=== PATIENT | female | born 1945 | race Hispanic/Latino ===

== ENCOUNTER 2017-10-30 12:45 | Emergency (ER) | payer MEDICARE ==
[~2017-10-30 12:45] MED LIST: AMLO1CAP13 PO; METF500T6 PO; METO5 PO; PRAV10TA39 PO; VALS160T28 PO; ZOLP10TA6 PO
[2017-10-30 14:15] LABS: APPEARANCE,URINE Clear (CLEAR); BILIRUBIN,URINE Negative (NEGATIVE); COLOR,URINE Yellow (YELLOW); GLUCOSE, URINE (UA) Negative (NEGATIVE); KETONES,URINE 15 mg/dL (NEGATIVE); LEUKOCYTE ESTERASE ,URINE Moderate (NEGATIVE); NITRATE,URINE Negative (NEGATIVE); OCCULT BLOOD,URINE Nonhemolyzed Trace (NEGATIVE); PH,URINE 5.5 (5.0-8.0); PROTEIN,URINE Trace (NEGATIVE); UROBILINOGEN,URINE 0.2 mg/dL (0.2-1.0)
[2017-10-30 14:36] LABS: BACTERIA,URINE None Seen /HPF (None Seen); RBC,URINE None Seen /HPF (0-1); TRANSITIONAL EPI CELLS,URINE Few /LPF (None Seen)
[2017-10-30 14:44] LABS: BASOPHILS % (AUTO) 0.1 % (0.0-5.0); EOSINOPHILS % (AUTO) 0.1 % (0.0-8.0); HEMATOCRIT 34.4 % (36-48); LYMPHOCYTES % (AUTO) 9.2 % (21.0-51.0); MEAN CORPUSCULAR HEMOGLOBIN 22.5 pg (27.0-33.0); MEAN CORPUSCULAR HGB CONC 32.1 g/dL (32.0-36.0); MEAN CORPUSCULAR VOLUME 70.2 fL (79-99); MONOCYTES % (AUTO) 2.4 % (3.0-13.0); NEUTROPHILS % (AUTO) 88.2 % (40.0-77.0); PLATELET COUNT (AUTO) 268 K/uL (130-400); RED CELL DISTRIBUTION WIDTH 17.2 % (11.0-15.5); WHITE BLOOD COUNT (AUTO) 13.7 K/uL (4.8-10.8)
[2017-10-30 15:03] LABS: CREATININE 0.8 mg/dL (0.5-1.5); POTASSIUM 3.1 mmol/L (3.5-5.1)
[2017-10-30] MEDS ORDERED: IOPAMIDOL-370 75 ML VIAL IV ONE (15:14)
[2017-10-30] MEDS ORDERED: POTASSIUM BICARB/CIT AC 25 MEQ TABLET.EFF ONE (16:41)
[2017-10-30] MEDS ORDERED: ACETAMINOPHEN 325 MG TAB ONE (16:45)
== END 2017-10-30 16:54 | disposition home or self-care (01) ==
LOC: EDH 12:45
DX: N28.89 Other specified disorders of kidney and ureter (principal); N39.0 Urinary tract infection, site not specified; E11.9 Type 2 diabetes mellitus without complications
CPT/HCPCS: 36415; 74177; 76856; 80048; 81001; 85025; 99285; Q9967

== ENCOUNTER 2017-11-04 14:29 | Observation (INO) | payer MEDICARE ==
[~2017-11-04] VITALS: Ht 152.4 cm; Wt 61.7 kg
[2017-11-04] MEDS ORDERED: ONDANSETRON HCL 4 MG/2 ML VIAL ONE (15:21)
[2017-11-04] MEDS ORDERED: MORPHINE SULFATE 4 MG/1ML SYG ONE ×2 (15:21→20:35)
[2017-11-04 15:23] LABS: BASOPHILS % (AUTO) 0.9 % (0.0-5.0); EOSINOPHILS % (AUTO) 0.3 % (0.0-8.0); HEMATOCRIT 31.6 % (36-48); LYMPHOCYTES % (AUTO) 21.7 % (21.0-51.0); MEAN CORPUSCULAR HEMOGLOBIN 22.4 pg (27.0-33.0); MEAN CORPUSCULAR HGB CONC 31.7 g/dL (32.0-36.0); MEAN CORPUSCULAR VOLUME 70.7 fL (79-99); MONOCYTES % (AUTO) 4.4 % (3.0-13.0); NEUTROPHILS % (AUTO) 72.7 % (40.0-77.0); PLATELET COUNT (AUTO) 286 K/uL (130-400); RED BLOOD CELL COUNT(AUTO) 4.47 MIL/uL (4.00-5.50)
[2017-11-04 15:34] LABS: APPEARANCE,URINE Cloudy (CLEAR); BILIRUBIN,URINE Negative (NEGATIVE); COLOR,URINE Yellow (YELLOW); GLUCOSE, URINE (UA) 250 mg/dL (NEGATIVE); KETONES,URINE 15 mg/dL (NEGATIVE); LEUKOCYTE ESTERASE ,URINE Moderate (NEGATIVE); NITRATE,URINE Negative (NEGATIVE); OCCULT BLOOD,URINE Moderate (NEGATIVE); PROTEIN,URINE POS 2+ (NEGATIVE); UROBILINOGEN,URINE 0.2 mg/dL (0.2-1.0)
[2017-11-04 15:36] LABS: CREATININE 0.7 mg/dL (0.5-1.5); POTASSIUM 3.3 mmol/L (3.5-5.1)
[2017-11-04 15:40] LABS: ALBUMIN 3.5 g/dL (3.5-5.0); BILIRUBIN,TOTAL 0.4 mg/dL (0.2-1.0); TOTAL PROTEIN, SERUM 6.8 g/dL (6.0-8.3)
[2017-11-04] MEDS ORDERED: POTASSIUM BICARB/CIT AC 25 MEQ TABLET.EFF ONE (15:40)
[2017-11-04 16:31] LABS: BACTERIA,URINE Many /HPF (None Seen); MUCUS,URINE Rare LPF (None Seen); RBC,URINE None Seen /HPF (0-1); SQUAMOUS EPITHELIAL CELL,UR 0-2 /LPF (0-2); WBC,URINE 51-100 /HPF (0-1)
[2017-11-04 16:39] LABS: RETICULOCYTE % (AUTO) 1.72 % (0.42-2.23)
[2017-11-04 16:49] LABS: INR 0.96 (0.85-1.15); PARTIAL THROMBOPLASTIN TIME 27.1 SEC (26.3-35.5); PROTHROMBIN TIME 10.1 SEC (9.6-11.6)
[2017-11-04] MEDS ORDERED: CEFTRIAXONE SODIUM 1 GM ONE (17:13)
[2017-11-04] MEDS ORDERED: SODIUM CHLORIDE 0.9% 1000ML 1,000 ML IV ONE (20:33)
[2017-11-04] MEDS ORDERED: ZOLPIDEM TARTRATE 5 MG TAB ONE (23:02)
[2017-11-05] MEDS ORDERED: MORPHINE SULFATE 2 MG/ML 1ML SYG IV PRN (00:30)
[2017-11-05] MEDS ORDERED: ONDANSETRON HCL 4 MG/2 ML VIAL IV PRN (00:30)
[2017-11-05] MEDS: CEFTRIAXONE 1GM/D5W 50ML 50 ML IV SCH ×2 (00:30→23:54)
[2017-11-05] MEDS ORDERED: HYDRALAZINE HCL 20 MG/ML VIAL IV PRN (00:30)
[2017-11-05] MEDS ORDERED: ACETAMINOPHEN 325 MG TAB PO PRN (00:30)
[2017-11-05] MEDS ORDERED: HYDRALAZINE HCL 20 MG/ML VIAL ONE (02:52)
[2017-11-05] MEDS ORDERED: SODIUM CHLORIDE 0.9% 1000ML 1,000 ML IV ONE (06:27)
[2017-11-05 06:42] LABS: BASOPHILS % (AUTO) 0.8 % (0.0-5.0); EOSINOPHILS % (AUTO) 0.1 % (0.0-8.0); LYMPHOCYTES % (AUTO) 17.4 % (21.0-51.0); MEAN CORPUSCULAR HEMOGLOBIN 22.7 pg (27.0-33.0); MEAN CORPUSCULAR HGB CONC 31.7 g/dL (32.0-36.0); MEAN CORPUSCULAR VOLUME 71.8 fL (79-99); MONOCYTES % (AUTO) 5.4 % (3.0-13.0); NEUTROPHILS % (AUTO) 76.3 % (40.0-77.0); PLATELET COUNT (AUTO) 299 K/uL (130-400); RED BLOOD CELL COUNT(AUTO) 4.32 MIL/uL (4.00-5.50); RED CELL DISTRIBUTION WIDTH 17.5 % (11.0-15.5); WHITE BLOOD COUNT (AUTO) 15.8 K/uL (4.8-10.8)
[2017-11-05 06:56] LABS: CREATININE 0.7 mg/dL (0.5-1.5); POTASSIUM 3.1 mmol/L (3.5-5.1)
[2017-11-05] MEDS ORDERED: PANTOPRAZOLE SODIUM 40 MG TABLET.DR PO ONE (07:21)
[2017-11-05] MEDS ORDERED: MORPHINE SULFATE 2 MG/ML 1ML SYG ONE (07:36)
[2017-11-05] MEDS: PANTOPRAZOLE SODIUM 40 MG TABLET.DR PO SCH (09:00)
[2017-11-05] MEDS ORDERED: CEFTRIAXONE SODIUM 1 GM ONE (09:06)
[2017-11-05] MEDS: SODIUM CHLORIDE 0.9% 1000ML 1,000 ML IV SCH ×3 (10:26→22:55)
[2017-11-05 11:30] VITALS: BP 164/80
[2017-11-05] MEDS: INSULIN LISPRO 100 UNIT/ML 3ML SQ SCH ×4 (11:30→21:34)
[2017-11-05] MEDS ORDERED: MV C1CAP5 PO (12:26)
[2017-11-05 15:30] VITALS: BP 145/80
[2017-11-05 19:50] VITALS: BP 152/78
[2017-11-05] MEDS: MORPHINE SULFATE 4 MG/1ML SYG IV PRN (20:03)
[2017-11-05 23:10] VITALS: BP 153/72
[2017-11-06] MEDS: MORPHINE SULFATE 4 MG/1ML SYG IV PRN ×2 (01:29→10:58)
[2017-11-06 02:57] VITALS: BP 150/72
[2017-11-06 05:15] LABS: BASOPHILS % (AUTO) 0.3 % (0.0-5.0); EOSINOPHILS % (AUTO) 0.5 % (0.0-8.0); HEMATOCRIT 28.6 % (36-48); LYMPHOCYTES % (AUTO) 21.3 % (21.0-51.0); MEAN CORPUSCULAR HEMOGLOBIN 22.5 pg (27.0-33.0); MEAN CORPUSCULAR HGB CONC 31.7 g/dL (32.0-36.0); MEAN CORPUSCULAR VOLUME 71.1 fL (79-99); MONOCYTES % (AUTO) 7.1 % (3.0-13.0); NEUTROPHILS % (AUTO) 70.8 % (40.0-77.0); PLATELET COUNT (AUTO) 260 K/uL (130-400); RED BLOOD CELL COUNT(AUTO) 4.03 MIL/uL (4.00-5.50); RED CELL DISTRIBUTION WIDTH 17.4 % (11.0-15.5); WHITE BLOOD COUNT (AUTO) 12.3 K/uL (4.8-10.8)
[2017-11-06 05:28] LABS: CREATININE 0.6 mg/dL (0.5-1.5)
[2017-11-06 05:29] LABS: POTASSIUM 2.9 mmol/L (3.5-5.1)
[2017-11-06] MEDS: INSULIN LISPRO 100 UNIT/ML 3ML SQ SCH ×4 (07:30→21:28)
[2017-11-06 07:37] VITALS: BP 151/71
[2017-11-06] MEDS ORDERED: ZOLPIDEM TARTRATE 5 MG TAB PO PRN ×2 (08:15→08:19)
[2017-11-06] MEDS: PANTOPRAZOLE SODIUM 40 MG TABLET.DR PO SCH (09:30)
[2017-11-06 11:32] VITALS: BP 152/68
[2017-11-06] MEDS: SODIUM CHLORIDE 0.9% 1000ML 1,000 ML IV SCH (14:40)
[2017-11-06 15:42] VITALS: BP 144/72
[2017-11-06] MEDS ORDERED: FENTANYL 50 MCG/HR PATCH TD SCH (16:30)
[2017-11-06] MEDS ORDERED: POTASSIUM CHLORIDE 20MEQ/100ML 100 ML IV PRN (17:15)
[2017-11-06] MEDS ORDERED: METOCLOPRAMIDE 5 MG TABLET PO PRN (17:15)
[2017-11-06] MEDS ORDERED: POTASSIUM CHLORIDE 10% ELIXIR 20 MEQ/15 ML UDCUP PO PRN (17:15)
[2017-11-06] MEDS ORDERED: LIDOCAINE HCL-MPF 1% 2ML VIAL IVP PRN (17:15)
[2017-11-06] MEDS: METFORMIN HCL 500 MG TABLET PO SCH (17:37)
[2017-11-06] MEDS: POTASSIUM CHLORIDE 20 MEQ ERTAB PO PRN ×3 (17:37→23:39)
[2017-11-06 18:50] VITALS: BP 153/67
[2017-11-06] MEDS ORDERED: ATORVASTATIN CALCIUM 10 MG TABLET PO SCH (21:00)
[2017-11-06 23:30] VITALS: BP 147/62
[2017-11-07] MEDS: CEFTRIAXONE 1GM/D5W 50ML 50 ML IV SCH (00:06)
[2017-11-07] MEDS: SODIUM CHLORIDE 0.9% 1000ML 1,000 ML IV SCH (00:07)
[2017-11-07] MEDS: POTASSIUM CHLORIDE 20 MEQ ERTAB PO PRN (01:05)
[2017-11-07 06:14] LABS: CREATININE 0.6 mg/dL (0.5-1.5); POTASSIUM 3.9 mmol/L (3.5-5.1)
[2017-11-07 07:51] VITALS: BP 149/70
[2017-11-07] MEDS ORDERED: FE FUMARATE/FA/MV, MIN COMB#15 1 TAB PO SCH (09:00)
[2017-11-07] MEDS ORDERED: LOSARTAN 100 MG TABLET PO SCH (09:00)
[2017-11-07] MEDS ORDERED: AMLODIPINE-BENAZEPRIL 5-10 MG PO SCH (09:00)
[2017-11-07] MEDS ORDERED: NON-FORMULARY MEDICATION 1 EACH (Amlodipine Besylate/Benazepril (Amlodipine-Benazepril 10- PO SCH (09:00)
[2017-11-07] MEDS: METFORMIN HCL 500 MG TABLET PO SCH ×2 (09:03→11:58)
[2017-11-07] MEDS: PANTOPRAZOLE SODIUM 40 MG TABLET.DR PO SCH (09:06)
[2017-11-07 11:42] VITALS: BP 131/67
[2017-11-07] MEDS ORDERED: INSULIN LISPRO 100 UNIT/ML 3ML SQ ONE (12:01)
[2017-11-07] MEDS: INSULIN LISPRO 100 UNIT/ML 3ML SQ SCH (12:03)
[2017-11-07 15:58] VITALS: BP 147/72
== END 2017-11-07 16:40 | disposition home or self-care (01) ==
LOC: EDH 14:29 → INTOOBSV 19:11 → EDHIP 19:11 → EEVIPCON 19:11 → WSH 11-05 11:30
PROVIDERS: ADMIT Family Medicine; ATTEND Family Medicine
DX: R10.2 Pelvic and perineal pain (principal); R10.84 Generalized abdominal pain; N88.8 Other specified noninflammatory disorders of cervix uteri; N28.89 Other specified disorders of kidney and ureter; N39.0 Urinary tract infection, site not specified; I10 Essential (primary) hypertension; E11.9 Type 2 diabetes mellitus without complications; E87.6 Hypokalemia; Z83.3 Family history of diabetes mellitus; Z90.49 Acquired absence of other specified parts of digestive tract
CPT/HCPCS: 36415 ×4; 71250; 78306; 80048 ×3; 80053; 81001; 82150; 82948 ×7; 83540; 83690; 83735; 85025 ×3; 85045; 85610; 85730; 87088; 96361 ×3; 96365; 96367; 96372 ×3; 96375 ×2; 96376 ×2; 99285; A4218; A9503; G0378 ×69; J0360; J0696 ×5; J1815; J2270 ×5; J2405; J3480; J7030 ×3

== ENCOUNTER 2017-11-20 19:29 | Inpatient (IN) | payer MEDICARE ==
[~2017-11-20] VITALS: Ht 154.9 cm; Wt 61.3 kg
[~2017-11-20 19:29] MED LIST changes: +MV C1CAP5 PO
[2017-11-20] MEDS ORDERED: ONDANSETRON HCL 4 MG/2 ML VIAL ONE (20:03)
[2017-11-20] MEDS ORDERED: MORPHINE SULFATE 2 MG/ML 1ML SYG ONE ×2 (20:04→21:31)
[2017-11-20 20:22] LABS: APPEARANCE,URINE Clear (CLEAR); BILIRUBIN,URINE Negative (NEGATIVE); COLOR,URINE Yellow (YELLOW); GLUCOSE, URINE (UA) Negative (NEGATIVE); KETONES,URINE Negative (NEGATIVE); LEUKOCYTE ESTERASE ,URINE Moderate (NEGATIVE); NITRATE,URINE Negative (NEGATIVE); OCCULT BLOOD,URINE Small (NEGATIVE); PROTEIN,URINE Negative (NEGATIVE); UROBILINOGEN,URINE 0.2 mg/dL (0.2-1.0)
[2017-11-20 20:23] LABS: BASOPHILS % (AUTO) 0.3 % (0.0-5.0); EOSINOPHILS % (AUTO) 0.2 % (0.0-8.0); HEMATOCRIT 34.8 % (36-48); LYMPHOCYTES % (AUTO) 20.4 % (21.0-51.0); MEAN CORPUSCULAR HEMOGLOBIN 23.1 pg (27.0-33.0); MEAN CORPUSCULAR HGB CONC 32.4 g/dL (32.0-36.0); MEAN CORPUSCULAR VOLUME 71.3 fL (79-99); MONOCYTES % (AUTO) 3.5 % (3.0-13.0); NEUTROPHILS % (AUTO) 75.6 % (40.0-77.0); PLATELET COUNT (AUTO) 326 K/uL (130-400); RED BLOOD CELL COUNT(AUTO) 4.88 MIL/uL (4.00-5.50); RED CELL DISTRIBUTION WIDTH 17.6 % (11.0-15.5); WHITE BLOOD COUNT (AUTO) 14.8 K/uL (4.8-10.8)
[2017-11-20 20:30] LABS: BACTERIA,URINE Rare /HPF (None Seen)
[2017-11-20 20:32] LABS: SQUAMOUS EPITHELIAL CELL,UR Rare /LPF (0-2)
[2017-11-20 20:41] LABS: CREATININE 0.7 mg/dL (0.5-1.5); POTASSIUM 3.1 mmol/L (3.5-5.1)
[2017-11-20 20:46] LABS: ALBUMIN 3.5 g/dL (3.5-5.0); BILIRUBIN,TOTAL 0.3 mg/dL (0.2-1.0); TOTAL PROTEIN, SERUM 7.2 g/dL (6.0-8.3)
[2017-11-20] MEDS ORDERED: HYDRALAZINE HCL 20 MG/ML VIAL ONE (23:51)
[2017-11-21] MEDS ORDERED: ZOLPIDEM TARTRATE 5 MG TAB ONE (02:03)
[2017-11-21] MEDS ORDERED: MORPHINE SULFATE 2 MG/ML 1ML SYG ONE (02:04)
[2017-11-21] MEDS ORDERED: CEFTRIAXONE SODIUM 1 GM ONE (02:55)
[2017-11-21 03:05] VITALS: BP 179/71
[2017-11-21] MEDS ORDERED: METF500T6 PO (03:47)
[2017-11-21] MEDS ORDERED: VALS160T28 PO (03:47)
[2017-11-21] MEDS ORDERED: ZOLP10TA6 PO (03:47)
[2017-11-21] MEDS ORDERED: MV C1CAP5 PO (03:47)
[2017-11-21] MEDS ORDERED: AMLO1CAP13 PO (03:47)
[2017-11-21] MEDS ORDERED: PRAV10TA39 PO (03:47)
[2017-11-21] MEDS ORDERED: LIDOCAINE HCL-MPF 1% 2ML VIAL IJ PRN (05:00)
[2017-11-21] MEDS ORDERED: CLONIDINE HCL 0.1 MG TABLET PO PRN (05:00)
[2017-11-21] MEDS ORDERED: LACTULOSE 20 GM/30 ML UDCUP PO PRN (05:00)
[2017-11-21] MEDS ORDERED: POTASSIUM CHLORIDE 20MEQ/100ML 100 ML IV PRN (05:00)
[2017-11-21] MEDS ORDERED: POTASSIUM CHLORIDE 10% ELIXIR 20 MEQ/15 ML UDCUP PO PRN (05:00)
[2017-11-21] MEDS ORDERED: DEXTROSE 50%-WATER 50 ML DISP.SYRIN IV PRN (05:00)
[2017-11-21] MEDS ORDERED: NITROGLYCERIN 0.4 MG SL TAB SL PRN (05:00)
[2017-11-21] MEDS ORDERED: ONDANSETRON HCL 4 MG/2 ML VIAL IVP PRN (05:00)
[2017-11-21] MEDS ORDERED: ZOLPIDEM TARTRATE 5 MG TAB PO PRN (05:00)
[2017-11-21] MEDS ORDERED: GLUCAGON 1MG KIT 1 MG ML IM PRN (05:00)
[2017-11-21] MEDS ORDERED: ACETAMINOPHEN 325 MG TAB PO PRN (05:00)
[2017-11-21 05:26] LABS: HEMATOCRIT 31.6 % (36-48); MEAN CORPUSCULAR HEMOGLOBIN 22.5 pg (27.0-33.0); MEAN CORPUSCULAR HGB CONC 31.7 g/dL (32.0-36.0); PLATELET COUNT (AUTO) 333 K/uL (130-400); RED BLOOD CELL COUNT(AUTO) 4.45 MIL/uL (4.00-5.50); RED CELL DISTRIBUTION WIDTH 17.8 % (11.0-15.5); WHITE BLOOD COUNT (AUTO) 16.6 K/uL (4.8-10.8)
[2017-11-21 05:35] LABS: CREATININE 0.6 mg/dL (0.5-1.5)
[2017-11-21] MEDS: SODIUM CHLORIDE 0.9% 1000ML 1,000 ML IV SCH (06:22)
[2017-11-21] MEDS: MORPHINE SULFATE 2 MG/ML 1ML SYG IVP PRN (06:26)
[2017-11-21] MEDS: INSULIN R PO SS1 SQ SCH ×5 (07:30→21:00)
[2017-11-21 08:00] VITALS: BP 139/68
[2017-11-21] MEDS: FAMOTIDINE 20MG TAB 20 MG TAB PO SCH ×2 (09:59→21:14)
[2017-11-21] MEDS ORDERED: MORPHINE SULFATE 4 MG/1ML SYG IVP PRN (10:30)
[2017-11-21 12:00] VITALS: BP 154/66
[2017-11-21] MEDS: CEFTRIAXONE SODIUM 1 GM IVP SCH (12:00)
[2017-11-21] MEDS: KETOROLAC TROMETHAMINE 15MG/ML IV PRN ×2 (12:21→21:13)
[2017-11-21] MEDS: INSULIN HUMULIN R 100 UNIT/ML 3ML SQ SCH ×3 (12:22→20:54)
[2017-11-21] MEDS: METFORMIN HCL 500 MG TABLET PO SCH ×2 (14:00→21:14)
[2017-11-21 16:00] VITALS: BP 176/76
[2017-11-21] MEDS: POTASSIUM CHLORIDE 20 MEQ ERTAB PO PRN ×3 (17:42→21:18)
[2017-11-21 19:00] VITALS: BP 163/85
[2017-11-21] MEDS: ATORVASTATIN CALCIUM 10 MG TABLET PO SCH (21:14)
[2017-11-21] MEDS: ZOLPIDEM TARTRATE 5 MG TAB PO PRN (21:18)
[2017-11-21 23:55] VITALS: BP 150/84
[2017-11-22] MEDS: POTASSIUM CHLORIDE 20 MEQ ERTAB PO PRN (02:53)
[2017-11-22] MEDS: KETOROLAC TROMETHAMINE 15MG/ML IV PRN ×2 (02:53→14:06)
[2017-11-22] MEDS ORDERED: CEFTRIAXONE 1GM/D5W 50ML 50 ML IV SCH (03:00)
[2017-11-22] MEDS: SODIUM CHLORIDE 0.9% 1000ML 1,000 ML IV SCH ×2 (03:49→13:00)
[2017-11-22 04:00] VITALS: BP 160/63
[2017-11-22 05:04] LABS: HEMATOCRIT 28.4 % (36-48); MEAN CORPUSCULAR HEMOGLOBIN 22.8 pg (27.0-33.0); MEAN CORPUSCULAR HGB CONC 32.1 g/dL (32.0-36.0); NUCLEATED RED BLOOD CELLS 0.1 % (0.0-0.19); PLATELET COUNT (AUTO) 287 K/uL (130-400); RED CELL DISTRIBUTION WIDTH 18.3 % (11.0-15.5); WHITE BLOOD COUNT (AUTO) 10.6 K/uL (4.8-10.8)
[2017-11-22 05:10] LABS: CREATININE 0.7 mg/dL (0.5-1.5); POTASSIUM 4.5 mmol/L (3.5-5.1)
[2017-11-22] MEDS: INSULIN HUMULIN R 100 UNIT/ML 3ML SQ SCH ×4 (06:15→21:00)
[2017-11-22 07:30] VITALS: BP 159/83
[2017-11-22] MEDS ORDERED: ENOXAPARIN SODIUM 40 MG/0.4 ML SYRINGE SQ SCH (09:00)
[2017-11-22 09:05] LABS: RETICULOCYTE % (AUTO) 1.37 % (0.42-2.23)
[2017-11-22] MEDS: LOSARTAN 100 MG TABLET PO SCH (09:15)
[2017-11-22] MEDS: FAMOTIDINE 20MG TAB 20 MG TAB PO SCH ×2 (09:15→21:29)
[2017-11-22] MEDS: METFORMIN HCL 500 MG TABLET PO SCH ×3 (09:15→21:29)
[2017-11-22] MEDS: FE FUMARATE/FA/MV, MIN COMB#15 1 TAB PO SCH (09:15)
[2017-11-22] MEDS: AMLODIPINE-BENAZEPRIL 5-10 MG PO SCH (09:16)
[2017-11-22 09:33] LABS: % IRON SATURATION 5.1 % (22-44)
[2017-11-22] MEDS: IRON SUCROSE COMPLEX 100 MG in SODIUM CHLORIDE 0.9% 50 ML IV SCH (10:25)
[2017-11-22 11:25] VITALS: BP 151/77
[2017-11-22 15:31] VITALS: BP 177/80
[2017-11-22] MEDS: MORPHINE SULFATE 2 MG/ML 1ML SYG IVP PRN ×2 (16:25→23:32)
[2017-11-22] MEDS: IBUPROFEN 400 MG TABLET PO PRN (18:58)
[2017-11-22 20:15] VITALS: BP 148/69
[2017-11-22] MEDS: ATORVASTATIN CALCIUM 10 MG TABLET PO SCH (21:29)
[2017-11-22] MEDS: ZOLPIDEM TARTRATE 5 MG TAB PO PRN (21:44)
[2017-11-22 23:49] VITALS: BP 139/59
[2017-11-23] MEDS: IBUPROFEN 400 MG TABLET PO PRN (00:40)
[2017-11-23] MEDS: MORPHINE SULFATE 2 MG/ML 1ML SYG IVP PRN ×3 (02:23→14:56)
[2017-11-23] MEDS: CEFTRIAXONE SODIUM 1 GM IVP SCH (02:26)
[2017-11-23 02:42] VITALS: BP 152/78
[2017-11-23 06:34] LABS: HEMATOCRIT 28.3 % (36-48); MEAN CORPUSCULAR HEMOGLOBIN 23.4 pg (27.0-33.0); MEAN CORPUSCULAR HGB CONC 32.6 g/dL (32.0-36.0); MEAN CORPUSCULAR VOLUME 71.8 fL (79-99); NUCLEATED RED BLOOD CELLS 0.1 % (0.0-0.19); PLATELET COUNT (AUTO) 267 K/uL (130-400); RED BLOOD CELL COUNT(AUTO) 3.95 MIL/uL (4.00-5.50); WHITE BLOOD COUNT (AUTO) 11.7 K/uL (4.8-10.8)
[2017-11-23 06:45] LABS: CREATININE 0.6 mg/dL (0.5-1.5); POTASSIUM 3.6 mmol/L (3.5-5.1)
[2017-11-23] MEDS: INSULIN HUMULIN R 100 UNIT/ML 3ML SQ SCH ×3 (07:10→21:00)
[2017-11-23 07:46] VITALS: BP 147/70
[2017-11-23] MEDS: LOSARTAN 100 MG TABLET PO SCH (09:28)
[2017-11-23] MEDS: METFORMIN HCL 500 MG TABLET PO SCH ×3 (09:28→21:17)
[2017-11-23] MEDS: FAMOTIDINE 20MG TAB 20 MG TAB PO SCH ×2 (09:28→21:18)
[2017-11-23] MEDS: FE FUMARATE/FA/MV, MIN COMB#15 1 TAB PO SCH (09:28)
[2017-11-23] MEDS: AMLODIPINE-BENAZEPRIL 5-10 MG PO SCH (09:28)
[2017-11-23] MEDS: POTASSIUM CHLORIDE 20 MEQ ERTAB PO PRN ×2 (10:36→18:19)
[2017-11-23] MEDS: IRON SUCROSE COMPLEX 100 MG in SODIUM CHLORIDE 0.9% 50 ML IV SCH (11:37)
[2017-11-23 11:57] VITALS: BP 159/82
[2017-11-23] MEDS: KETOROLAC TROMETHAMINE 15MG/ML IV PRN (12:35)
[2017-11-23] MEDS ORDERED: KETOROLAC TROMETHAMINE 15MG/ML IV PRN (12:45)
[2017-11-23] MEDS: ACETAMINOPHEN 325 MG TAB PO PRN (15:50)
[2017-11-23 16:03] VITALS: BP 156/78
[2017-11-23 19:26] VITALS: BP 147/88
[2017-11-23] MEDS: ZOLPIDEM TARTRATE 5 MG TAB PO PRN (21:17)
[2017-11-23] MEDS: ATORVASTATIN CALCIUM 10 MG TABLET PO SCH (21:18)
[2017-11-23 23:05] VITALS: BP 145/75
[2017-11-24] MEDS: MORPHINE SULFATE 2 MG/ML 1ML SYG IVP PRN ×2 (01:41→17:04)
[2017-11-24] MEDS: CEFTRIAXONE SODIUM 1 GM IVP SCH ×2 (02:39→12:00)
[2017-11-24] MEDS: ACETAMINOPHEN 325 MG TAB PO PRN (02:39)
[2017-11-24 03:36] VITALS: BP 146/63
[2017-11-24] MEDS: INSULIN HUMULIN R 100 UNIT/ML 3ML SQ SCH ×3 (07:20→21:00)
[2017-11-24 07:34] LABS: INR 1.41 (0.85-1.15); PARTIAL THROMBOPLASTIN TIME 31.2 SEC (26.3-35.5); PROTHROMBIN TIME 14.7 SEC (9.6-11.6)
[2017-11-24 07:35] LABS: ALBUMIN 3.2 g/dL (3.5-5.0); BILIRUBIN,TOTAL 0.3 mg/dL (0.2-1.0); CREATININE 0.8 mg/dL (0.5-1.5); POTASSIUM 3.7 mmol/L (3.5-5.1); TOTAL PROTEIN, SERUM 6.5 g/dL (6.0-8.3)
[2017-11-24 07:45] VITALS: BP 149/71
[2017-11-24] MEDS: FAMOTIDINE 20MG TAB 20 MG TAB PO SCH ×2 (09:37→21:40)
[2017-11-24] MEDS: METFORMIN HCL 500 MG TABLET PO SCH ×3 (09:37→21:40)
[2017-11-24] MEDS: LOSARTAN 100 MG TABLET PO SCH (09:37)
[2017-11-24] MEDS: AMLODIPINE-BENAZEPRIL 5-10 MG PO SCH (09:38)
[2017-11-24] MEDS: IRON SUCROSE COMPLEX 100 MG in SODIUM CHLORIDE 0.9% 50 ML IV SCH (09:38)
[2017-11-24] MEDS: POTASSIUM CHLORIDE 20 MEQ ERTAB PO PRN ×2 (09:38→15:09)
[2017-11-24] MEDS: FE FUMARATE/FA/MV, MIN COMB#15 1 TAB PO SCH (09:41)
[2017-11-24 11:56] VITALS: BP 151/79
[2017-11-24] MEDS: KETOROLAC TROMETHAMINE 15MG/ML IV PRN (12:07)
[2017-11-24] MEDS: TRAMADOL HCL 50 MG TABLET PO PRN ×2 (15:38→23:37)
[2017-11-24 15:44] VITALS: BP 148/72
[2017-11-24 19:43] VITALS: BP 140/57
[2017-11-24] MEDS: ATORVASTATIN CALCIUM 10 MG TABLET PO SCH (21:40)
[2017-11-24] MEDS: ZOLPIDEM TARTRATE 5 MG TAB PO PRN (21:40)
[2017-11-24 23:11] VITALS: BP 142/69
[2017-11-25] MEDS: ACETAMINOPHEN 325 MG TAB PO PRN ×2 (01:10→12:16)
[2017-11-25] MEDS: CEFTRIAXONE SODIUM 1 GM IVP SCH (02:38)
[2017-11-25 03:27] VITALS: BP 133/56
[2017-11-25] MEDS: INSULIN HUMULIN R 100 UNIT/ML 3ML SQ SCH (07:30)
[2017-11-25 07:52] VITALS: BP 144/71
[2017-11-25] MEDS: IRON SUCROSE COMPLEX 100 MG in SODIUM CHLORIDE 0.9% 50 ML IV SCH (09:00)
[2017-11-25] MEDS ORDERED: ENOXAPARIN SODIUM 40 MG/0.4 ML SYRINGE SQ SCH (09:00)
[2017-11-25] MEDS: FAMOTIDINE 20MG TAB 20 MG TAB PO SCH (09:13)
[2017-11-25] MEDS: METFORMIN HCL 500 MG TABLET PO SCH ×2 (09:14→13:38)
[2017-11-25] MEDS: FE FUMARATE/FA/MV, MIN COMB#15 1 TAB PO SCH (09:14)
[2017-11-25] MEDS: AMLODIPINE-BENAZEPRIL 5-10 MG PO SCH (09:14)
[2017-11-25] MEDS: LOSARTAN 100 MG TABLET PO SCH (09:14)
[2017-11-25 11:57] VITALS: BP 129/58
[2017-11-25] MEDS ORDERED: CEPH500B PO (13:00)
[2017-11-25] MEDS: TRAMADOL HCL 50 MG TABLET PO PRN (13:39)
== END 2017-11-25 15:35 | disposition home or self-care (01) | DRG 687 ==
LOC: EDH 19:29 → EDHIP 23:19 → OBSVTOIN 23:19 → 3CH 11-21 01:40 → WSH 11-22 11:22
PROVIDERS: ADMIT Internal Medicine; ATTEND Internal Medicine
PROC: 0TB13ZX Excision of Left Kidney, Percutaneous Approach, Diagnostic (ICD-10-PCS; principal; 2017-11-25)
DX: C64.2 Malignant neoplasm of left kidney, except renal pelvis (principal); N39.0 Urinary tract infection, site not specified; E11.65 Type 2 diabetes mellitus with hyperglycemia; C53.9 Malignant neoplasm of cervix uteri, unspecified; E86.0 Dehydration; D64.9 Anemia, unspecified; G47.00 Insomnia, unspecified; I10 Essential (primary) hypertension; N28.89 Other specified disorders of kidney and ureter; Z79.899 Other long term (current) drug therapy; Z87.891 Personal history of nicotine dependence; Z90.49 Acquired absence of other specified parts of digestive tract
CPT/HCPCS: 36415; 80048; 80053; 81001; 82607; 82728; 82746; 82948; 84132; 85025; 85027; 85610; 85730; 87088; A4218; J0360; J0696; J1650; J1756; J1815; J1885; J2405; J3480; J3490; J7030

== ENCOUNTER 2017-11-29 07:19 | Day surgery (SDC) | payer MEDICARE ==
[~2017-11-29] VITALS: Ht 154.9 cm; Wt 60.1 kg
[~2017-11-29 07:19] MED LIST changes: +CEPH500B PO; -METO5 PO
[2017-11-29 08:38] LABS: INR 1.02 (0.85-1.15); PARTIAL THROMBOPLASTIN TIME 29.2 SEC (26.3-35.5); PROTHROMBIN TIME 10.7 SEC (9.6-11.6)
[2017-11-29] MEDS ORDERED: FENTANYL CITRATE PF 50 MCG/1 ML 2ML VIAL ONE (12:24)
[2017-11-29] MEDS ORDERED: MIDAZOLAM HCL 1 MG/ML 2ML VIAL ONE (12:24)
[2017-11-29] MEDS ORDERED: SODIUM CHLORIDE 0.9% 1000ML 1,000 ML IV ONE (14:29)
== END 2017-11-29 15:05 | disposition home or self-care (01) ==
LOC: DAH 07:19 → EDSTATUS 08:00 → DAH 15:05
PROVIDERS: ATTEND Urology
DX: C64.2 Malignant neoplasm of left kidney, except renal pelvis (principal); I10 Essential (primary) hypertension; E11.9 Type 2 diabetes mellitus without complications; Z90.49 Acquired absence of other specified parts of digestive tract; Z98.890 Other specified postprocedural states; Z79.899 Other long term (current) drug therapy; Z87.891 Personal history of nicotine dependence
CPT/HCPCS: 50200; 36415; 76942; 82948 ×2; 85610; 85730; 88305; C2615; J2250; J3010; J7030

== ENCOUNTER 2018-08-04 20:16 | Inpatient (IN) | payer MEDICARE ==
[~2018-08-04] VITALS: Ht 154.9 cm; Wt 61.7 kg
[~2018-08-04 20:16] MED LIST changes: +METF-444 PO; -METF500T6 PO; -VALS160T28 PO; +VALS160T29 PO
[2018-08-04] MEDS ORDERED: ONDANSETRON HCL 4 MG/2 ML VIAL ONE (21:03)
[2018-08-04 21:09] LABS: BASOPHILS % (AUTO) 0.1 % (0.0-5.0); EOSINOPHILS % (AUTO) 0.1 % (0.0-8.0); HEMATOCRIT 29.6 % (36-48); LYMPHOCYTES % (AUTO) 12.9 % (21.0-51.0); MEAN CORPUSCULAR HEMOGLOBIN 23.3 pg (27.0-33.0); MEAN CORPUSCULAR HGB CONC 32.6 g/dL (32.0-36.0); MEAN CORPUSCULAR VOLUME 71.4 fL (79-99); MONOCYTES % (AUTO) 5.4 % (3.0-13.0); NEUTROPHILS % (AUTO) 81.5 % (40.0-77.0); NUCLEATED RED BLOOD CELLS 0.1 % (0.0-0.19); PLATELET COUNT (AUTO) 276 K/uL (130-400); RED BLOOD CELL COUNT(AUTO) 4.14 MIL/uL (4.00-5.50); RED CELL DISTRIBUTION WIDTH 18.6 % (11.0-15.5); WHITE BLOOD COUNT (AUTO) 9.6 K/uL (4.8-10.8)
[2018-08-04 21:28] LABS: ALBUMIN 3.6 g/dL (3.5-5.0); BILIRUBIN,TOTAL 0.5 mg/dL (0.2-1.0); CREATININE 0.9 mg/dL (0.5-1.5); POTASSIUM 3.2 mmol/L (3.5-5.1); TOTAL PROTEIN, SERUM 6.9 g/dL (6.0-8.3)
[2018-08-04 21:30] LABS: APPEARANCE,URINE Clear (CLEAR); BILIRUBIN,URINE Negative (NEGATIVE); COLOR,URINE Yellow (YELLOW); GLUCOSE, URINE (UA) Negative (NEGATIVE); KETONES,URINE 15 mg/dL (NEGATIVE); LEUKOCYTE ESTERASE ,URINE Trace (NEGATIVE); NITRATE,URINE Negative (NEGATIVE); OCCULT BLOOD,URINE Negative (NEGATIVE); PH,URINE 5.5 (5.0-8.0); PROTEIN,URINE Negative (NEGATIVE)
[2018-08-04 21:36] LABS: BACTERIA,URINE Rare /HPF (None Seen); RBC,URINE 0-1 /HPF (0-1); SQUAMOUS EPITHELIAL CELL,UR Few /HPF (0-2); TRANSITIONAL EPI CELLS,URINE Few /HPF (None Seen); WBC,URINE 0-1 /HPF (0-1)
[2018-08-04] MEDS ORDERED: SODIUM CHLORIDE 0.9% 1000ML 1,000 ML IV ONE (22:18)
[2018-08-04] MEDS ORDERED: METOCLOPRAMIDE 10 MG/2 ML VIAL ONE (22:22)
[2018-08-04] MEDS: SODIUM CHLORIDE 0.9% 1000ML 1,000 ML IV SCH (23:45)
[2018-08-04] MEDS ORDERED: METOCLOPRAMIDE 10 MG/2 ML VIAL IVP PRN (23:45)
[2018-08-04] MEDS ORDERED: ONDANSETRON HCL MDV 20ML 2 MG/ML VIAL IVP PRN (23:45)
[2018-08-04 23:48] VITALS: BP 127/77
[2018-08-05 03:15] VITALS: BP 150/70
[2018-08-05 05:24] LABS: HEMATOCRIT 27.7 % (36-48); MEAN CORPUSCULAR HEMOGLOBIN 24.1 pg (27.0-33.0); MEAN CORPUSCULAR HGB CONC 33.5 g/dL (32.0-36.0); MEAN CORPUSCULAR VOLUME 71.9 fL (79-99); PLATELET COUNT (AUTO) 286 K/uL (130-400); RED BLOOD CELL COUNT(AUTO) 3.85 MIL/uL (4.00-5.50); RED CELL DISTRIBUTION WIDTH 18.4 % (11.0-15.5); WHITE BLOOD COUNT (AUTO) 9.1 K/uL (4.8-10.8)
[2018-08-05 05:42] LABS: POTASSIUM 2.7 mmol/L (3.5-5.1)
[2018-08-05] MEDS: SODIUM CHLORIDE 0.9% 1000ML 1,000 ML IV SCH ×3 (06:09→23:55)
[2018-08-05 07:59] VITALS: BP 166/95
[2018-08-05] MEDS ORDERED: POTASSIUM CHLORIDE 10% ELIXIR 20 MEQ/15 ML UDCUP PO PRN (08:15)
[2018-08-05] MEDS ORDERED: LIDOCAINE HCL-MPF 1% 2ML VIAL IVP PRN (08:15)
[2018-08-05] MEDS: DIPHENOXYLATE HCL/ATROPINE 2.5/0.025 MG TAB PO SCH ×2 (08:52→21:40)
[2018-08-05] MEDS: POTASSIUM CHLORIDE 20 MEQ ERTAB PO PRN ×4 (08:53→17:48)
[2018-08-05] MEDS: POTASSIUM CHLORIDE 20MEQ/100ML 100 ML IV PRN ×2 (08:54→13:53)
[2018-08-05] MEDS ORDERED: ACETAMINOPHEN EXTRA STRENGTH 500 MG TABLET PO PRN (09:15)
[2018-08-05 11:40] VITALS: BP 155/68
[2018-08-05] MEDS ORDERED: LEVOFLOXACIN 500 MG/D5W 100 ML 100 ML IV SCH (16:30)
[2018-08-05 16:46] VITALS: BP 166/83
[2018-08-05 19:00] VITALS: BP 174/80
[2018-08-05] MEDS: METRONIDAZOLE 500MG/100ML BAG 100 ML IV SCH (21:40)
[2018-08-05] MEDS: FAMOTIDINE/PF 20 MG/2 ML VIAL IV SCH (21:40)
[2018-08-05 23:00] VITALS: BP 128/54
[2018-08-05] MEDS ORDERED: MAGNESIUM 2GM PREMIX 50ML 50 ML IV PRN (23:45)
[2018-08-05] MEDS ORDERED: MAGNESIUM 2GM PREMIX 50ML 50 ML IV ONE (23:48)
[2018-08-06 03:25] VITALS: BP 150/63
[2018-08-06 04:54] LABS: HEMATOCRIT 28.3 % (36-48); MEAN CORPUSCULAR HEMOGLOBIN 24.1 pg (27.0-33.0); MEAN CORPUSCULAR HGB CONC 32.9 g/dL (32.0-36.0); MEAN CORPUSCULAR VOLUME 73.3 fL (79-99); PLATELET COUNT (AUTO) 249 K/uL (130-400); RED BLOOD CELL COUNT(AUTO) 3.86 MIL/uL (4.00-5.50); RED CELL DISTRIBUTION WIDTH 18.5 % (11.0-15.5); WHITE BLOOD COUNT (AUTO) 6.9 K/uL (4.8-10.8)
[2018-08-06 05:06] LABS: CREATININE 0.8 mg/dL (0.5-1.5); MAGNESIUM 1.6 mg/dL (1.80-2.40); POTASSIUM 4.5 mmol/L (3.5-5.1)
[2018-08-06] MEDS: METRONIDAZOLE 500MG/100ML BAG 100 ML IV SCH (05:36)
[2018-08-06 08:00] VITALS: BP 172/88
[2018-08-06] MEDS: DIPHENOXYLATE HCL/ATROPINE 2.5/0.025 MG TAB PO SCH (10:05)
[2018-08-06] MEDS: FAMOTIDINE/PF 20 MG/2 ML VIAL IV SCH (10:05)
[2018-08-06] MEDS: SODIUM CHLORIDE 0.9% 1000ML 1,000 ML IV SCH (10:06)
[2018-08-06 12:00] VITALS: BP 176/87
== END 2018-08-06 15:20 | disposition home or self-care (01) | DRG 641 ==
LOC: EDH 20:16 → EDHIP 22:14 → 3BH 23:48
PROVIDERS: ADMIT Internal Medicine; ATTEND Internal Medicine
DX: E86.0 Dehydration (principal); E87.1 Hypo-osmolality and hyponatremia; D64.9 Anemia, unspecified; E11.22 Type 2 diabetes mellitus with diabetic chronic kidney disease; E78.5 Hyperlipidemia, unspecified; E83.42 Hypomagnesemia; E87.6 Hypokalemia; I12.9 Hypertensive chronic kidney disease with stage 1 through stage 4 chronic kidney disease, or unspecified chronic kidney disease; K52.9 Noninfective gastroenteritis and colitis, unspecified; N18.9 Chronic kidney disease, unspecified; Z80.42 Family history of malignant neoplasm of prostate; Z82.49 Family history of ischemic heart disease and other diseases of the circulatory system; Z83.3 Family history of diabetes mellitus; Z85.42 Personal history of malignant neoplasm of other parts of uterus; Z85.528 Personal history of other malignant neoplasm of kidney; Z90.49 Acquired absence of other specified parts of digestive tract; Z90.5 Acquired absence of kidney; Z90.710 Acquired absence of both cervix and uterus; Z92.21 Personal history of antineoplastic chemotherapy
CPT/HCPCS: 36415; 80048; 80053; 81001; 82150; 82948; 83690; 83735; 84132; 85025; 85027; 93005; J1956; J2405; J2765; J3475; J3480; J3490; J7030

== ENCOUNTER 2019-09-21 10:23 | Emergency (ER) | payer MEDICARE ==
[~2019-09-21 10:23] MED LIST changes: +AMLO-74 PO; -AMLO1CAP13 PO; -CEPH500B PO; +GABA-529 PO; +HYDR12.54 PO; +METO5TAB87 PO
[2019-09-21] MEDS ORDERED: ONDANSETRON HCL 4 MG/2 ML VIAL ONE (11:07)
[2019-09-21] MEDS ORDERED: MORPHINE SULFATE 4 MG/1ML SYG ONE (11:08)
[2019-09-21 11:42] LABS: BASOPHILS % (AUTO) 0.7 % (0.0-5.0); EOSINOPHILS % (AUTO) 0.4 % (0.0-8.0); HEMATOCRIT 40.6 % (36-48); LYMPHOCYTES % (AUTO) 13.2 % (21.0-51.0); MEAN CORPUSCULAR HEMOGLOBIN 29.3 pg (27.0-33.0); MEAN CORPUSCULAR HGB CONC 33.8 g/dL (32.0-36.0); MEAN CORPUSCULAR VOLUME 86.5 fL (79-99); NEUTROPHILS % (AUTO) 81.7 % (40.0-77.0); PLATELET COUNT (AUTO) 179 K/uL (130-400); RED BLOOD CELL COUNT(AUTO) 4.69 MIL/uL (4.00-5.50); RED CELL DISTRIBUTION WIDTH 15.7 % (11.0-15.5); WHITE BLOOD COUNT (AUTO) 7.9 K/uL (4.8-10.8)
[2019-09-21 11:47] LABS: APPEARANCE,URINE Clear (CLEAR); BILIRUBIN,URINE Negative (NEGATIVE); COLOR,URINE Yellow (YELLOW); GLUCOSE, URINE (UA) Negative (NEGATIVE); KETONES,URINE Negative (NEGATIVE); LEUKOCYTE ESTERASE ,URINE Small (NEGATIVE); NITRATE,URINE Negative (NEGATIVE); OCCULT BLOOD,URINE Negative (NEGATIVE); PH,URINE 8.5 (5.0-8.0); PROTEIN,URINE Negative (NEGATIVE)
[2019-09-21 11:53] LABS: CREATININE 0.8 mg/dL (0.5-1.5); POTASSIUM 3.9 mmol/L (3.5-5.1)
[2019-09-21 11:58] LABS: ALBUMIN 3.8 g/dL (3.5-5.0); BILIRUBIN,DIRECT 0.1 mg/dL (0.0-0.3); BILIRUBIN,TOTAL 0.6 mg/dL (0.2-1.0); TOTAL PROTEIN, SERUM 7.4 g/dL (6.0-8.3)
[2019-09-21 12:07] LABS: BACTERIA,URINE Rare /HPF (None Seen); RBC,URINE 0-1 /HPF (0-1); SQUAMOUS EPITHELIAL CELL,UR Rare /HPF (0-2)
== END 2019-09-21 14:12 | disposition home or self-care (01) ==
LOC: EDH 10:23
DX: K43.9 Ventral hernia without obstruction or gangrene (principal); R10.9 Unspecified abdominal pain; C79.9 Secondary malignant neoplasm of unspecified site; I10 Essential (primary) hypertension; E11.9 Type 2 diabetes mellitus without complications; G47.00 Insomnia, unspecified; Z90.5 Acquired absence of kidney; Z90.710 Acquired absence of both cervix and uterus
CPT/HCPCS: 36415; 74176; 80048; 80076; 81001; 82550; 83690; 84484; 85025; 93005; 96374; 96375; 99285; J2270; J2405

== ENCOUNTER 2019-11-21 07:50 | Emergency (ER) | payer MEDICARE ==
[2019-11-21] MEDS ORDERED: MORPHINE SULFATE 4 MG/1ML SYG ONE (08:23)
[2019-11-21 08:24] LABS: BASOPHILS % (AUTO) 0.3 % (0.0-5.0); HEMATOCRIT 37.6 % (36-48); LYMPHOCYTES % (AUTO) 15.5 % (21.0-51.0); MEAN CORPUSCULAR HEMOGLOBIN 28.1 pg (27.0-33.0); MEAN CORPUSCULAR VOLUME 82.5 fL (79-99); MONOCYTES % (AUTO) 6.6 % (3.0-13.0); NEUTROPHILS % (AUTO) 75.5 % (40.0-77.0); PLATELET COUNT (AUTO) 183 K/uL (130-400); RED BLOOD CELL COUNT(AUTO) 4.56 MIL/uL (4.00-5.50); RED CELL DISTRIBUTION WIDTH 12.4 % (11.0-15.5); WHITE BLOOD COUNT (AUTO) 7.8 K/uL (4.8-10.8)
[2019-11-21] MEDS ORDERED: ONDANSETRON HCL 4 MG/2 ML VIAL ONE (08:24)
[2019-11-21] MEDS ORDERED: SODIUM CHLORIDE 0.9% 1000ML 1,000 ML IV ONE (08:25)
[2019-11-21 08:42] LABS: CREATININE 0.9 mg/dL (0.5-1.5); POTASSIUM 3.9 mmol/L (3.5-5.1)
[2019-11-21 09:28] LABS: APPEARANCE,URINE Clear (CLEAR); BILIRUBIN,URINE Negative (NEGATIVE); COLOR,URINE Yellow (YELLOW); GLUCOSE, URINE (UA) Negative (NEGATIVE); KETONES,URINE Negative (NEGATIVE); LEUKOCYTE ESTERASE ,URINE Trace (NEGATIVE); NITRATE,URINE Negative (NEGATIVE); OCCULT BLOOD,URINE Negative (NEGATIVE); PH,URINE 6.5 (5.0-8.0); PROTEIN,URINE Negative (NEGATIVE)
[2019-11-21 09:47] LABS: BACTERIA,URINE Few /HPF (None Seen); RBC,URINE 0-1 /HPF (0-1); WBC,URINE 0-1 /HPF (0-1)
== END 2019-11-21 09:58 | disposition home or self-care (01) ==
LOC: EDH 07:50
DX: K43.9 Ventral hernia without obstruction or gangrene (principal); R91.1 Solitary pulmonary nodule; K86.89 Other specified diseases of pancreas; E11.9 Type 2 diabetes mellitus without complications; I10 Essential (primary) hypertension; Z90.710 Acquired absence of both cervix and uterus
CPT/HCPCS: 36415; 74176; 80048; 81001; 83605; 85025; 96374; 96375; 99285; J2270; J2405; J7030

== ENCOUNTER 2020-01-07 16:28 | Emergency (ER) | payer MEDICARE ==
[~2020-01-07 16:28] MED LIST changes: -AMLO-74 PO; +AMLO10TA7 PO; +ASPI-555 PO; +FERR325T22 PO; -GABA-529 PO; -HYDR12.54 PO; +HYDR25TA PO; -METO5TAB87 PO; -MV C1CAP5 PO; +PREG50CA63 PO; -VALS160T29 PO; +VALS320T16 PO; +ZOLP10TA2 PO; -ZOLP10TA6 PO
[2020-01-27] MEDS ORDERED: LEVO500T2 PO (13:24)
== END 2020-01-07 18:31 | disposition home or self-care (01) ==
LOC: EDH 16:28
DX: Z48.815 Encounter for surgical aftercare following surgery on the digestive system (principal); Z48.03 Encounter for change or removal of drains; I10 Essential (primary) hypertension; E11.9 Type 2 diabetes mellitus without complications; Z90.49 Acquired absence of other specified parts of digestive tract; Z90.710 Acquired absence of both cervix and uterus

== ENCOUNTER 2020-02-09 16:31 | Emergency (ER) | payer MEDICARE ==
[~2020-02-09 16:31] MED LIST changes: +LEVO500T2 PO
== END 2020-02-09 18:08 | disposition home or self-care (01) ==
LOC: EDH 16:31
DX: S31.109A Unspecified open wound of abdominal wall, unspecified quadrant without penetration into peritoneal cavity, initial encounter (principal); I10 Essential (primary) hypertension; E11.9 Type 2 diabetes mellitus without complications; Z98.890 Other specified postprocedural states; Z90.710 Acquired absence of both cervix and uterus; X58.XXXA Exposure to other specified factors, initial encounter; Y93.89 Activity, other specified; Y92.89 Other specified places as the place of occurrence of the external cause; Y99.8 Other external cause status
CPT/HCPCS: 99282

== ENCOUNTER 2020-03-14 12:03 | Emergency (ER) | payer MEDICARE ==
[2020-03-14 12:49] LABS: BASOPHILS % (AUTO) 0.3 % (0.0-5.0); EOSINOPHILS % (AUTO) 0.3 % (0.0-8.0); HEMATOCRIT 33.8 % (36-48); MEAN CORPUSCULAR HEMOGLOBIN 27.3 pg (27.0-33.0); MEAN CORPUSCULAR VOLUME 80.3 fL (79-99); MONOCYTES % (AUTO) 4.1 % (3.0-13.0); NEUTROPHILS % (AUTO) 81.2 % (40.0-77.0); PLATELET COUNT (AUTO) 381 K/uL (130-400); RED BLOOD CELL COUNT(AUTO) 4.21 MIL/uL (4.00-5.50); RED CELL DISTRIBUTION WIDTH 14.1 % (11.0-15.5); WHITE BLOOD COUNT (AUTO) 11.6 K/uL (4.8-10.8)
[2020-03-14 13:14] LABS: ALBUMIN 2.8 g/dL (3.5-5.0); BILIRUBIN,TOTAL 0.3 mg/dL (0.2-1.0); TOTAL PROTEIN, SERUM 6.5 g/dL (6.0-8.3)
[2020-03-14 13:18] LABS: POTASSIUM 2.7 mmol/L (3.5-5.1)
[2020-03-14 13:20] LABS: INR 0.99 (0.85-1.15); PARTIAL THROMBOPLASTIN TIME 27.6 SEC (26.3-35.5); PROTHROMBIN TIME 10.7 SEC (9.6-11.6)
[2020-03-14] MEDS ORDERED: POTASSIUM CHLORIDE 20MEQ/100ML 0 ML IV ONE (13:28)
[2020-03-14] MEDS ORDERED: LIDOCAINE HCL-MPF 1% 2ML VIAL ONE (13:28)
[2020-03-14] MEDS ORDERED: POTASSIUM CHLORIDE 10MEQ/100ML 100 ML IV ONE (13:31)
[2020-03-14 13:35] LABS: CREATININE 0.8 mg/dL (0.5-1.5)
[2020-03-14 13:49] LABS: APPEARANCE,URINE Clear (CLEAR); BILIRUBIN,URINE Negative (NEGATIVE); COLOR,URINE Yellow (YELLOW); GLUCOSE, URINE (UA) Negative (NEGATIVE); KETONES,URINE Negative (NEGATIVE); LEUKOCYTE ESTERASE ,URINE Trace (NEGATIVE); NITRATE,URINE Negative (NEGATIVE); OCCULT BLOOD,URINE Negative (NEGATIVE); PH,URINE 6.5 (5.0-8.0); PROTEIN,URINE Negative (NEGATIVE); UROBILINOGEN,URINE 0.2 mg/dL (0.2-1.0)
[2020-03-14 14:11] LABS: BACTERIA,URINE Rare /HPF (None Seen); RBC,URINE 0-1 /HPF (0-1); SQUAMOUS EPITHELIAL CELL,UR Rare /HPF (0-2); WBC,URINE 0-1 /HPF (0-1)
[2020-03-14] MEDS ORDERED: POTASSIUM BICARB/CIT AC 25 MEQ TABLET.EFF ONE (15:15)
== END 2020-03-14 16:49 | disposition home or self-care (01) ==
LOC: EDH 12:03
DX: E87.6 Hypokalemia (principal); K52.9 Noninfective gastroenteritis and colitis, unspecified; S31.109A Unspecified open wound of abdominal wall, unspecified quadrant without penetration into peritoneal cavity, initial encounter; I10 Essential (primary) hypertension; E11.9 Type 2 diabetes mellitus without complications; Z90.710 Acquired absence of both cervix and uterus; Z98.890 Other specified postprocedural states; X58.XXXA Exposure to other specified factors, initial encounter; Y93.89 Activity, other specified; Y92.89 Other specified places as the place of occurrence of the external cause; Y99.8 Other external cause status
CPT/HCPCS: 36415; 74176; 76856; 80053; 81001; 82150; 82550; 83690; 84484; 85025; 85610; 85730; 93005; 96365; 96366; J3480; J3490

== ENCOUNTER 2020-07-18 10:06 | Emergency (ER) | payer MEDICARE ==
[~2020-07-18 10:06] MED LIST changes: -ASPI-555 PO; +ASPI-556 PO
[2020-07-18 10:59] LABS: BASOPHILS % (AUTO) 0.2 % (0.0-5.0); EOSINOPHILS % (AUTO) 0.7 % (0.0-8.0); HEMATOCRIT 31.1 % (36-48); LYMPHOCYTES % (AUTO) 8.5 % (21.0-51.0); MEAN CORPUSCULAR HEMOGLOBIN 26.4 pg (27.0-33.0); MEAN CORPUSCULAR HGB CONC 32.8 g/dL (32.0-36.0); MEAN CORPUSCULAR VOLUME 80.6 fL (79-99); MONOCYTES % (AUTO) 5.8 % (3.0-13.0); NEUTROPHILS % (AUTO) 84.2 % (40.0-77.0); PLATELET COUNT (AUTO) 279 K/uL (130-400); RED BLOOD CELL COUNT(AUTO) 3.86 MIL/uL (4.00-5.50); RED CELL DISTRIBUTION WIDTH 14.6 % (11.0-15.5); WHITE BLOOD COUNT (AUTO) 9.6 K/uL (4.8-10.8)
[2020-07-18 11:10] LABS: CARBON DIOXIDE 25 mmol/L (21-32); CHLORIDE 96 mmol/L (101-111); CREATININE 0.8 mg/dL (0.5-1.5); GLOMERULAR FILTR. RATE CALC 75 mL/min (>60); GLUCOSE,RANDOM 128 mg/dL (70-105); POTASSIUM 3.2 mmol/L (3.5-5.1); SODIUM SERUM 132 mmol/L (136-145); UREA NITROGEN, BLOOD 12 mg/dL (7-18)
[2020-07-18] MEDS ORDERED: FENTANYL CITRATE PF 50 MCG/1 ML 2ML VIAL ONE (11:12)
[2020-07-18 11:14] LABS: ALANINE AMINOTRANSFERASE 10 U/L (12-78); ALBUMIN 2.8 g/dL (3.5-5.0); ASPARTATE AMINOTRANSFERASE 19 U/L (10-37); BILIRUBIN,TOTAL 0.3 mg/dL (0.2-1.0); TOTAL PROTEIN, SERUM 6.7 g/dL (6.0-8.3)
[2020-07-18 11:15] LABS: LIPASE < 50 U/L (114-286)
[2020-07-18 11:47] LABS: APPEARANCE,URINE Clear (CLEAR); BILIRUBIN,URINE Negative (NEGATIVE); COLOR,URINE Yellow (YELLOW); GLUCOSE, URINE (UA) Negative (NEGATIVE); KETONES,URINE Negative (NEGATIVE); LEUKOCYTE ESTERASE ,URINE Negative (NEGATIVE); NITRATE,URINE Negative (NEGATIVE); OCCULT BLOOD,URINE Negative (NEGATIVE); PROTEIN,URINE Negative (NEGATIVE); UROBILINOGEN,URINE 0.2 mg/dL (0.2-1.0)
[2020-07-18] MEDS ORDERED: POTASSIUM CHLORIDE 20 MEQ ERTAB PO ONE (12:33)
== END 2020-07-18 13:32 | disposition home or self-care (01) ==
LOC: EDH 10:06
DX: G89.28 Other chronic postprocedural pain (principal); R11.0 Nausea; R10.9 Unspecified abdominal pain; E11.9 Type 2 diabetes mellitus without complications; I10 Essential (primary) hypertension; Z90.49 Acquired absence of other specified parts of digestive tract; Z90.710 Acquired absence of both cervix and uterus
CPT/HCPCS: 36415; 80053; 81003; 83690; 85025; 96374; 99283; J3010

== ENCOUNTER → 2020-07-31 | Outpatient (CLI) | payer MEDICARE ==
[~2020-07-31] MED LIST changes: +CEFU500T67 PO; +CHOL50002 PO
== END | disposition home or self-care (01) ==
LOC: WHH 13:30
PROVIDERS: ATTEND Specialist
DX: T81.32XA Disruption of internal operation (surgical) wound, not elsewhere classified, initial encounter (principal); E11.622 Type 2 diabetes mellitus with other skin ulcer; L98.492 Non-pressure chronic ulcer of skin of other sites with fat layer exposed; I10 Essential (primary) hypertension; E78.5 Hyperlipidemia, unspecified; D64.9 Anemia, unspecified; Z90.49 Acquired absence of other specified parts of digestive tract; Z90.710 Acquired absence of both cervix and uterus; Y83.8 Other surgical procedures as the cause of abnormal reaction of the patient, or of later complication, without mention of misadventure at the time of the procedure; Y92.238 Other place in hospital as the place of occurrence of the external cause
CPT/HCPCS: 87070; 87077; 87186; A6209; G0463

== ENCOUNTER → 2020-08-14 | Outpatient (CLI) | payer MEDICARE ==
[~2020-08-14] MED LIST changes: +AMLO-258 PO; -AMLO10TA7 PO; -LEVO500T2 PO; +LIDOCAINE HCL 4% LTA SOL 4 ML VIAL TP ONE
== END | disposition home or self-care (01) ==
LOC: WHH 13:30
PROVIDERS: ATTEND Specialist
DX: T81.32XD Disruption of internal operation (surgical) wound, not elsewhere classified, subsequent encounter (principal); E11.622 Type 2 diabetes mellitus with other skin ulcer; L98.492 Non-pressure chronic ulcer of skin of other sites with fat layer exposed; I10 Essential (primary) hypertension; E78.5 Hyperlipidemia, unspecified; D64.9 Anemia, unspecified; Z90.49 Acquired absence of other specified parts of digestive tract; Z90.710 Acquired absence of both cervix and uterus; Y83.8 Other surgical procedures as the cause of abnormal reaction of the patient, or of later complication, without mention of misadventure at the time of the procedure
CPT/HCPCS: A6209; G0463

== ENCOUNTER → 2020-08-21 | Outpatient (CLI) | payer MEDICARE ==
[~2020-08-21] MED LIST changes: -LIDOCAINE HCL 4% LTA SOL 4 ML VIAL TP ONE
== END | disposition home or self-care (01) ==
LOC: WHH 13:38
PROVIDERS: ATTEND Specialist
DX: T81.32XD Disruption of internal operation (surgical) wound, not elsewhere classified, subsequent encounter (principal); E11.622 Type 2 diabetes mellitus with other skin ulcer; L98.492 Non-pressure chronic ulcer of skin of other sites with fat layer exposed; I10 Essential (primary) hypertension; E78.5 Hyperlipidemia, unspecified; D64.9 Anemia, unspecified; Z90.49 Acquired absence of other specified parts of digestive tract; Z90.710 Acquired absence of both cervix and uterus; Y83.8 Other surgical procedures as the cause of abnormal reaction of the patient, or of later complication, without mention of misadventure at the time of the procedure
CPT/HCPCS: A6209; G0463

== ENCOUNTER → 2020-09-04 | Outpatient (CLI) | payer MEDICARE ==
[~2020-09-04] MED LIST changes: +LIDOCAINE HCL 2% JELLY 5 ML TP ONE
== END | disposition home or self-care (01) ==
LOC: WHH 13:00
PROVIDERS: ATTEND Specialist
DX: T81.32XD Disruption of internal operation (surgical) wound, not elsewhere classified, subsequent encounter (principal); E11.622 Type 2 diabetes mellitus with other skin ulcer; L98.492 Non-pressure chronic ulcer of skin of other sites with fat layer exposed; I10 Essential (primary) hypertension; E78.5 Hyperlipidemia, unspecified; D64.9 Anemia, unspecified; Z90.49 Acquired absence of other specified parts of digestive tract; Z90.710 Acquired absence of both cervix and uterus; Y83.8 Other surgical procedures as the cause of abnormal reaction of the patient, or of later complication, without mention of misadventure at the time of the procedure
CPT/HCPCS: 87070; A6209; G0463

== ENCOUNTER → 2020-09-18 | Outpatient (CLI) | payer MEDICARE ==
[~2020-09-18] MED LIST changes: -LIDOCAINE HCL 2% JELLY 5 ML TP ONE
== END | disposition home or self-care (01) ==
LOC: WHH 13:00
PROVIDERS: ATTEND Specialist
DX: T81.32XD Disruption of internal operation (surgical) wound, not elsewhere classified, subsequent encounter (principal); E11.622 Type 2 diabetes mellitus with other skin ulcer; L98.492 Non-pressure chronic ulcer of skin of other sites with fat layer exposed; I10 Essential (primary) hypertension; E78.5 Hyperlipidemia, unspecified; D64.9 Anemia, unspecified; Z90.49 Acquired absence of other specified parts of digestive tract; Z90.710 Acquired absence of both cervix and uterus; Y83.8 Other surgical procedures as the cause of abnormal reaction of the patient, or of later complication, without mention of misadventure at the time of the procedure
CPT/HCPCS: A6207; G0463

== ENCOUNTER → 2020-10-02 | Outpatient (CLI) | payer MEDICARE ==
[~2020-10-02] MED LIST changes: +LIDOCAINE HCL 2% JELLY 5 ML TP ONE
== END | disposition home or self-care (01) ==
LOC: WHH 13:00
PROVIDERS: ATTEND Specialist
DX: T81.32XD Disruption of internal operation (surgical) wound, not elsewhere classified, subsequent encounter (principal); E11.622 Type 2 diabetes mellitus with other skin ulcer; L98.492 Non-pressure chronic ulcer of skin of other sites with fat layer exposed; I10 Essential (primary) hypertension; E78.5 Hyperlipidemia, unspecified; D64.9 Anemia, unspecified; Z90.49 Acquired absence of other specified parts of digestive tract; Z90.710 Acquired absence of both cervix and uterus; Y83.8 Other surgical procedures as the cause of abnormal reaction of the patient, or of later complication, without mention of misadventure at the time of the procedure
CPT/HCPCS: A6207; G0463

== ENCOUNTER → 2020-10-16 | Outpatient (CLI) | payer MEDICARE ==
[~2020-10-16] MED LIST changes: -LIDOCAINE HCL 2% JELLY 5 ML TP ONE
== END | disposition home or self-care (01) ==
LOC: WHH 13:00
PROVIDERS: ATTEND Specialist
DX: T81.32XD Disruption of internal operation (surgical) wound, not elsewhere classified, subsequent encounter (principal); E11.622 Type 2 diabetes mellitus with other skin ulcer; L98.492 Non-pressure chronic ulcer of skin of other sites with fat layer exposed; I10 Essential (primary) hypertension; E78.5 Hyperlipidemia, unspecified; D64.9 Anemia, unspecified; Z90.49 Acquired absence of other specified parts of digestive tract; Z90.710 Acquired absence of both cervix and uterus; Y83.8 Other surgical procedures as the cause of abnormal reaction of the patient, or of later complication, without mention of misadventure at the time of the procedure
CPT/HCPCS: A6209; G0463

== ENCOUNTER → 2020-10-30 | Outpatient (CLI) | payer MEDICARE | END | disposition home or self-care (01) | LOC: WHH 13:00 | PROVIDERS: ATTEND Specialist | DX: T81.32XD Disruption of internal operation (surgical) wound, not elsewhere classified, subsequent encounter (principal); E11.622 Type 2 diabetes mellitus with other skin ulcer; L98.492 Non-pressure chronic ulcer of skin of other sites with fat layer exposed; I10 Essential (primary) hypertension; E78.5 Hyperlipidemia, unspecified; D64.9 Anemia, unspecified; Z90.49 Acquired absence of other specified parts of digestive tract; Z90.710 Acquired absence of both cervix and uterus; Y83.8 Other surgical procedures as the cause of abnormal reaction of the patient, or of later complication, without mention of misadventure at the time of the procedure | CPT/HCPCS: A6209; G0463 ==

== ENCOUNTER 2020-11-22 09:01 | Inpatient (IN) | payer MEDICARE, MEDICAID ==
[~2020-11-22] VITALS: Ht 154.9 cm; Wt 57.6 kg
[2020-11-22 09:30] LABS: BASOPHILS % (AUTO) 0.2 % (0.0-5.0); EOSINOPHILS % (AUTO) 0.2 % (0.0-8.0); HEMATOCRIT 35.8 % (36-48); LYMPHOCYTES % (AUTO) 5.8 % (21.0-51.0); MEAN CORPUSCULAR HEMOGLOBIN 26.4 pg (27.0-33.0); MEAN CORPUSCULAR VOLUME 80.1 fL (79-99); MONOCYTES % (AUTO) 3.1 % (3.0-13.0); PLATELET COUNT (AUTO) 340 K/uL (130-400); RED BLOOD CELL COUNT(AUTO) 4.47 MIL/uL (4.00-5.50); WHITE BLOOD COUNT (AUTO) 18.2 K/uL (4.8-10.8)
[2020-11-22] MEDS ORDERED: DICYCLOMINE 20MG (10MG/ML) AMP IM ONE (09:36)
[2020-11-22] MEDS ORDERED: MORPHINE 2 MG SYG ONE (09:37)
[2020-11-22 09:39] LABS: CREATININE 0.8 mg/dL (0.5-1.5)
[2020-11-22 09:39] LABS: APPEARANCE,URINE Clear (CLEAR); BILIRUBIN,URINE Negative (NEGATIVE); COLOR,URINE Yellow (YELLOW); GLUCOSE, URINE (UA) Negative (NEGATIVE); KETONES,URINE 15 mg/dL (NEGATIVE); LEUKOCYTE ESTERASE ,URINE Trace (NEGATIVE); NITRATE,URINE Negative (NEGATIVE); OCCULT BLOOD,URINE Small (NEGATIVE); PROTEIN,URINE Negative (NEGATIVE); UROBILINOGEN,URINE 0.2 mg/dL (0.2-1.0)
[2020-11-22 09:44] LABS: ALBUMIN 3.5 g/dL (3.5-5.0); BILIRUBIN,TOTAL 0.4 mg/dL (0.2-1.0); TOTAL PROTEIN, SERUM 7.2 g/dL (6.0-8.3)
[2020-11-22 09:50] LABS: BACTERIA,URINE Few /HPF (None Seen); MUCUS,URINE None Seen LPF (None Seen); SQUAMOUS EPITHELIAL CELL,UR None Seen /HPF (0-2)
[2020-11-22] MEDS ORDERED: KCL 20 MEQ ERTAB PO ONE (09:52)
[2020-11-22] MEDS ORDERED: ONDANSETRON 4MG INJ ONE (10:26)
[2020-11-22] MEDS ORDERED: CEFTRIAXONE 1G VIAL ONE (11:36)
[2020-11-22] MEDS ORDERED: 0.9%NACL 100ML 100 ML IV ONE (11:37)
[2020-11-22] MEDS ORDERED: 0.9%NACL 1000ML 1,000 ML IV SCH (11:45)
[2020-11-22] MEDS ORDERED: MORPHINE 4 MG SYG IV PRN (11:45)
[2020-11-22] MEDS ORDERED: DEXTROSE 50%-WATER 50 ML DISP.SYRIN IV PRN (11:45)
[2020-11-22] MEDS ORDERED: GLUCAGON 1MG KIT 1 MG ML IM PRN (11:45)
[2020-11-22] MEDS ORDERED: MORPHINE 2 MG SYG IVP PRN ×2 (11:45→18:45)
[2020-11-22] MEDS ORDERED: METRONIDAZOLE 500MG/100ML BAG 100 ML ONE (11:56)
[2020-11-22] MEDS ORDERED: 0.9%NACL 1000ML 1,000 ML IV ONE (12:23)
[2020-11-22] MEDS: CEFTRIAXONE 1G VIAL IVP SCH (12:45)
[2020-11-22] MEDS: INSULIN HUMULIN R 100 UNIT/ML 3ML SQ SCH ×2 (16:30→20:52)
[2020-11-22] MEDS ORDERED: POTASSIUM CHLORIDE 10% ELIXIR 20 MEQ/15 ML UDCUP PO PRN (17:00)
[2020-11-22] MEDS: 0.9%NACL 1000ML 1,000 ML IV SCH (18:30)
[2020-11-22] MEDS: MORPHINE 2 MG SYG IVP PRN (18:44)
[2020-11-22 20:00] VITALS: BP 183/83
[2020-11-22] MEDS: FAMOTIDINE 20MG TAB PO SCH (20:08)
[2020-11-22] MEDS: KCL 20 MEQ ERTAB PO PRN ×2 (20:08→23:10)
[2020-11-22] MEDS: LIDOCAINE HCL-MPF 1% 2ML VIAL IV PRN (20:09)
[2020-11-22] MEDS: POTASSIUM CHLORIDE 20MEQ/100ML 100 ML IV PRN (20:09)
[2020-11-22] MEDS ORDERED: IOHEXOL-350 50ML VIAL IV ONE (22:07)
[2020-11-22] MEDS ORDERED: MV C1CAP5 PO (22:53)
[2020-11-22] MEDS ORDERED: MULT-1258 PO (22:53)
[2020-11-22] MEDS ORDERED: ZOLPIDEM TARTRATE 5 MG TAB ONE (23:02)
[2020-11-23] VITALS (7 sets, daily range): BP systolic 162–187; BP diastolic 73–88
[2020-11-23] MEDS: MORPHINE 2 MG SYG IVP PRN ×5 (00:01→19:51)
[2020-11-23] MEDS ORDERED: LABETALOL 20MG SYG IV SCH (04:45)
[2020-11-23] MEDS ORDERED: LABETALOL 20MG SYG IV ONE (05:01)
[2020-11-23] MEDS: 0.9%NACL 1000ML 1,000 ML IV SCH ×2 (05:06→19:40)
[2020-11-23 06:27] LABS: BASOPHILS % (AUTO) 0.1 % (0.0-5.0); EOSINOPHILS % (AUTO) 0.1 % (0.0-8.0); HEMATOCRIT 34.6 % (36-48); LYMPHOCYTES % (AUTO) 7.1 % (21.0-51.0); MEAN CORPUSCULAR HEMOGLOBIN 26.7 pg (27.0-33.0); MEAN CORPUSCULAR HGB CONC 32.4 g/dL (32.0-36.0); MEAN CORPUSCULAR VOLUME 82.6 fL (79-99); MONOCYTES % (AUTO) 3.8 % (3.0-13.0); NEUTROPHILS % (AUTO) 87.8 % (40.0-77.0); PLATELET COUNT (AUTO) 323 K/uL (130-400); RED BLOOD CELL COUNT(AUTO) 4.19 MIL/uL (4.00-5.50); RED CELL DISTRIBUTION WIDTH 14.4 % (11.0-15.5)
[2020-11-23] MEDS: INSULIN HUMULIN R 100 UNIT/ML 3ML SQ SCH ×4 (06:48→19:50)
[2020-11-23 06:56] LABS: CREATININE 0.8 mg/dL (0.5-1.5); POTASSIUM 4.7 mmol/L (3.5-5.1)
[2020-11-23] MEDS: FAMOTIDINE 20MG TAB PO SCH ×2 (08:24→19:50)
[2020-11-23] MEDS: ENOXAPARIN SODIUM 30 MG/0.3 ML SQ SCH (08:25)
[2020-11-23] MEDS: ONDANSETRON 4MG INJ IVP PRN ×2 (09:33→16:34)
[2020-11-23] MEDS: CEFTRIAXONE 1G VIAL IVP SCH (13:10)
[2020-11-23] MEDS: LOSARTAN 100 MG TABLET PO SCH (13:11)
[2020-11-23] MEDS: HYDROCHLOROTHIAZIDE 25 MG TABLET PO SCH (13:11)
[2020-11-23] MEDS: FERROUS SULFATE 325 MG TABLET.DR PO SCH ×2 (14:49→19:50)
[2020-11-23] MEDS: AMLODIPINE 5 MG TAB PO SCH (19:50)
[2020-11-23] MEDS: ATORVASTATIN 10 MG TABLET PO SCH (19:50)
[2020-11-23] MEDS: ZOLPIDEM TARTRATE 5 MG TAB PO SCH (21:04)
[2020-11-24] VITALS (9 sets, daily range): BP systolic 141–189; BP diastolic 56–91
[2020-11-24] MEDS: MORPHINE 2 MG SYG IVP PRN ×5 (00:01→22:05)
[2020-11-24] MEDS: 0.9%NACL 1000ML 1,000 ML IV SCH ×2 (05:11→22:04)
[2020-11-24] MEDS: INSULIN HUMULIN R 100 UNIT/ML 3ML SQ SCH ×4 (06:12→21:00)
[2020-11-24] MEDS: FAMOTIDINE 20MG TAB PO SCH ×2 (08:37→21:05)
[2020-11-24] MEDS: FERROUS SULFATE 325 MG TABLET.DR PO SCH ×3 (08:37→21:05)
[2020-11-24] MEDS: LOSARTAN 100 MG TABLET PO SCH (08:37)
[2020-11-24] MEDS: HYDROCHLOROTHIAZIDE 25 MG TABLET PO SCH (08:37)
[2020-11-24] MEDS: ENOXAPARIN SODIUM 30 MG/0.3 ML SQ SCH (08:37)
[2020-11-24] MEDS: CEFTRIAXONE 1G VIAL IVP SCH (13:19)
[2020-11-24] MEDS: ATORVASTATIN 10 MG TABLET PO SCH (21:05)
[2020-11-24] MEDS: METOPROLOL TARTRATE 25 MG TAB PO SCH (21:05)
[2020-11-24] MEDS: ZOLPIDEM TARTRATE 5 MG TAB PO SCH (21:05)
[2020-11-24] MEDS: AMLODIPINE 5 MG TAB PO SCH (21:05)
[2020-11-25] VITALS (10 sets, daily range): BP systolic 156–190; BP diastolic 68–90
[2020-11-25] MEDS: MORPHINE 2 MG SYG IVP PRN ×4 (02:32→19:55)
[2020-11-25 04:55] LABS: BASOPHILS % (AUTO) 0.4 % (0.0-5.0); EOSINOPHILS % (AUTO) 0.6 % (0.0-8.0); HEMATOCRIT 34.3 % (36-48); LYMPHOCYTES % (AUTO) 11.1 % (21.0-51.0); MEAN CORPUSCULAR HEMOGLOBIN 26.6 pg (27.0-33.0); MEAN CORPUSCULAR HGB CONC 32.4 g/dL (32.0-36.0); MEAN CORPUSCULAR VOLUME 82.3 fL (79-99); MONOCYTES % (AUTO) 5.2 % (3.0-13.0); NEUTROPHILS % (AUTO) 81.4 % (40.0-77.0); PLATELET COUNT (AUTO) 270 K/uL (130-400); RED BLOOD CELL COUNT(AUTO) 4.17 MIL/uL (4.00-5.50); RED CELL DISTRIBUTION WIDTH 14.3 % (11.0-15.5); WHITE BLOOD COUNT (AUTO) 14.1 K/uL (4.8-10.8)
[2020-11-25 05:21] LABS: ALBUMIN 2.7 g/dL (3.5-5.0); BILIRUBIN,TOTAL 0.3 mg/dL (0.2-1.0); CREATININE 0.7 mg/dL (0.5-1.5); POTASSIUM 3.6 mmol/L (3.5-5.1); TOTAL PROTEIN, SERUM 6.3 g/dL (6.0-8.3)
[2020-11-25] MEDS: LIDOCAINE HCL-MPF 1% 2ML VIAL IV PRN (05:47)
[2020-11-25] MEDS: POTASSIUM CHLORIDE 20MEQ/100ML 100 ML IV PRN (05:47)
[2020-11-25] MEDS: INSULIN HUMULIN R 100 UNIT/ML 3ML SQ SCH ×4 (06:18→19:59)
[2020-11-25] MEDS: FAMOTIDINE 20MG TAB PO SCH ×2 (09:00→19:45)
[2020-11-25] MEDS: HYDROCHLOROTHIAZIDE 25 MG TABLET PO SCH (09:00)
[2020-11-25] MEDS: ENOXAPARIN SODIUM 30 MG/0.3 ML SQ SCH (09:00)
[2020-11-25] MEDS: FERROUS SULFATE 325 MG TABLET.DR PO SCH ×3 (09:00→19:44)
[2020-11-25] MEDS: METOPROLOL TARTRATE 25 MG TAB PO SCH ×2 (09:00→19:45)
[2020-11-25] MEDS: LOSARTAN 100 MG TABLET PO SCH (09:00)
[2020-11-25] MEDS: 0.9%NACL 1000ML 1,000 ML IV SCH (11:35)
[2020-11-25 12:56] LABS: INR 1.06 (0.85-1.15); PROTHROMBIN TIME 11.3 SEC (9.6-11.6)
[2020-11-25 12:58] LABS: PARTIAL THROMBOPLASTIN TIME 27.8 SEC (26.3-35.5)
[2020-11-25] MEDS: CEFTRIAXONE 1G VIAL IVP SCH (13:12)
[2020-11-25] MEDS: LABETALOL 20MG SYG IV PRN ×2 (13:13→17:57)
[2020-11-25] MEDS ORDERED: MIDAZOLAM HCL 1 MG/ML 2ML VIAL ONE ×2 (13:30→14:01)
[2020-11-25] MEDS ORDERED: FENTANYL CITRATE PF 50 MCG/1 ML 2ML VIAL ONE ×2 (13:30→14:01)
[2020-11-25] MEDS: AMLODIPINE 5 MG TAB PO SCH (19:44)
[2020-11-25] MEDS: ATORVASTATIN 10 MG TABLET PO SCH (19:45)
[2020-11-25] MEDS: ZOLPIDEM TARTRATE 5 MG TAB PO SCH (19:45)
[2020-11-25] MEDS: KCL 20 MEQ ERTAB PO PRN (19:46)
[2020-11-26 00:49] VITALS: BP 168/76
[2020-11-26] MEDS: 0.9%NACL 1000ML 1,000 ML IV SCH (01:00)
[2020-11-26 04:29] VITALS: BP 156/72
[2020-11-26 04:39] LABS: BASOPHILS % (AUTO) 0.3 % (0.0-5.0); EOSINOPHILS % (AUTO) 0.2 % (0.0-8.0); HEMATOCRIT 35.4 % (36-48); LYMPHOCYTES % (AUTO) 7.6 % (21.0-51.0); MEAN CORPUSCULAR HEMOGLOBIN 25.9 pg (27.0-33.0); MEAN CORPUSCULAR HGB CONC 31.4 g/dL (32.0-36.0); MEAN CORPUSCULAR VOLUME 82.5 fL (79-99); MONOCYTES % (AUTO) 4.7 % (3.0-13.0); NEUTROPHILS % (AUTO) 86.1 % (40.0-77.0); PLATELET COUNT (AUTO) 281 K/uL (130-400); RED BLOOD CELL COUNT(AUTO) 4.29 MIL/uL (4.00-5.50); RED CELL DISTRIBUTION WIDTH 14.4 % (11.0-15.5); WHITE BLOOD COUNT (AUTO) 17.8 K/uL (4.8-10.8)
[2020-11-26 05:11] LABS: ALBUMIN 2.8 g/dL (3.5-5.0); BILIRUBIN,TOTAL 0.4 mg/dL (0.2-1.0); CREATININE 0.7 mg/dL (0.5-1.5); POTASSIUM 4.1 mmol/L (3.5-5.1); TOTAL PROTEIN, SERUM 6.5 g/dL (6.0-8.3)
[2020-11-26] MEDS: MORPHINE 2 MG SYG IVP PRN ×4 (05:31→14:24)
[2020-11-26] MEDS: INSULIN HUMULIN R 100 UNIT/ML 3ML SQ SCH ×3 (05:38→16:30)
[2020-11-26 08:00] VITALS: BP 204/80
[2020-11-26] MEDS: FAMOTIDINE 20MG TAB PO SCH (08:13)
[2020-11-26] MEDS: LOSARTAN 100 MG TABLET PO SCH (08:13)
[2020-11-26] MEDS: METOPROLOL TARTRATE 25 MG TAB PO SCH (08:13)
[2020-11-26] MEDS: FERROUS SULFATE 325 MG TABLET.DR PO SCH ×2 (08:13→14:23)
[2020-11-26] MEDS: HYDROCHLOROTHIAZIDE 25 MG TABLET PO SCH (08:13)
[2020-11-26] MEDS: ENOXAPARIN SODIUM 30 MG/0.3 ML SQ SCH (08:14)
[2020-11-26 08:28] VITALS: BP 189/81
[2020-11-26 11:37] VITALS: BP 161/70
[2020-11-26] MEDS: CEFTRIAXONE 1G VIAL IVP SCH (14:23)
[2020-11-26 16:00] VITALS: BP 183/77
== END 2020-11-26 19:15 | disposition home or self-care (01) | DRG 844 ==
LOC: EDH 09:01 → EDHIP 11:33 → 3DH 16:42
PROVIDERS: ADMIT Family Medicine; ATTEND Family Medicine
PROC: 0BBF3ZX Excision of Right Lower Lung Lobe, Percutaneous Approach, Diagnostic (ICD-10-PCS; principal; 2020-11-25)
DX: D49.89 Neoplasm of unspecified behavior of other specified sites (principal); N39.0 Urinary tract infection, site not specified; E87.1 Hypo-osmolality and hyponatremia; R91.8 Other nonspecific abnormal finding of lung field; E87.6 Hypokalemia; I10 Essential (primary) hypertension; D64.9 Anemia, unspecified; R91.1 Solitary pulmonary nodule; G47.00 Insomnia, unspecified; E11.65 Type 2 diabetes mellitus with hyperglycemia; E86.0 Dehydration; N93.9 Abnormal uterine and vaginal bleeding, unspecified; Z85.528 Personal history of other malignant neoplasm of kidney; Z90.5 Acquired absence of kidney; Z82.49 Family history of ischemic heart disease and other diseases of the circulatory system; Z83.3 Family history of diabetes mellitus; Z80.42 Family history of malignant neoplasm of prostate; Z85.42 Personal history of malignant neoplasm of other parts of uterus; Z85.43 Personal history of malignant neoplasm of ovary
CPT/HCPCS: 32405; 36415; 71260; 74176; 77012; 80048; 80053; 82948; 85025; 85610; 85730; 88305; 88341; 88342; 88360; 93005; 99152; 99153; G0378; G0463; J0500; J0696; J1650; J2250; J2270; J2405; J3010; J3480; J3490; J7030; Q9967

== ENCOUNTER → 2020-12-04 | Outpatient (CLI) | payer MEDICARE ==
[~2020-12-04] MED LIST changes: -ASPI-556 PO; -CEFU500T67 PO; +MULT-1258 PO; +MV C1CAP5 PO; -PREG50CA63 PO
== END | disposition home or self-care (01) ==
LOC: WHH 13:22
PROVIDERS: ATTEND Specialist
DX: T81.32XD Disruption of internal operation (surgical) wound, not elsewhere classified, subsequent encounter (principal); E11.622 Type 2 diabetes mellitus with other skin ulcer; L98.492 Non-pressure chronic ulcer of skin of other sites with fat layer exposed; I10 Essential (primary) hypertension; E78.5 Hyperlipidemia, unspecified; D64.9 Anemia, unspecified; Z90.49 Acquired absence of other specified parts of digestive tract; Z90.710 Acquired absence of both cervix and uterus; Y83.8 Other surgical procedures as the cause of abnormal reaction of the patient, or of later complication, without mention of misadventure at the time of the procedure
CPT/HCPCS: 87070; 87077; 87186; G0463